=== PATIENT | female | born 1975 | race Caucasian/White ===

== ENCOUNTER 2017-12-23 14:59 | Observation (INO) | payer OTHER ==
[2017-12-23 15:22] LABS: #Basophils 0.1 thou/uL (0.0-0.2); #Eosinphils 0.1 thou/uL (0.0-0.7); #Monocytes 0.4 thou/uL (0.11-0.59); #Neutrophils 5.1 thou/uL (1.40-6.50); %Basophils 1.2 % (0.0-1.0); %Eosinophils 1.4 % (0.0-10.0); %Lymphocytes 34.3 % (21.0-51.0); %Monocytes 4.1 % (0.0-10.0); Hemoglobin 14.7 g/dL (12.0-16.0); Mean Corpuscular Hemoglobin 32.8 pg (27.0-31.0); Mean Corpuscular Volume 96.5 fL (78.0-98.0); Mean Platelet Volume 7.6 fL (7.4-10.4); Platelet Count 230 thou/uL (130-400); RBC Distribution Width 12.3 % (11.5-14.5); Red Blood Cell (RBC) Count 4.49 mill/uL (4.20-5.40); White Blood Cell (WBC) Count 8.6 thou/uL (4.8-10.8)
[2017-12-23 15:46] LABS: ALT (SGPT) 15 U/L (8-55); AST (SGOT) 17 U/L (5-34); Albumin 4.1 g/dL (3.5-5.0); Alkaline Phosphatase 79 U/L (40-150); Anion Gap 16 mmol/L (10-20); BUN (Urea Nitrogen) 9 mg/dL (7.0-18.7); Bilirubin, Total 0.2 mg/dL (0.2-1.2); CK (CPK) 79 U/L (29-168); Calc. Creatinine Clearance 0 mL/min (70-130); Carbon Dioxide 20 mmol/L (22-29); Chloride 106 mmol/L (98-107); Estimated GFR-MDRD 83; Globulin 3.2 g/dL (2.4-3.5); Glucose 86 mg/dL (70-105); Potassium 3.7 mmol/L (3.5-5.1); Protein, Total 7.3 g/dL (6.0-8.3); Sodium 138 mmol/L (136-145)
[2017-12-23 15:49] LABS: CKMB 1.6 ng/mL (0-6.6); Troponin I Less than 0.010 ng/mL (< 0.028)
--- NOTE | 2017-12-23 15:56 | RAD ---
PORTABLE CHEST RADIOGRAPH: Date: 12-23-17 History: Chest pain. Comparison: 12-20-11 FINDINGS: Cardiac silhouette and pulmonary vasculature are within normal limits for the portable technique of t he study. The lungs are clear. Right convex scoliosis thoracic spine is again present. There has been no interval change from the prior exam. IMPRESSION: No acute cardiopulmonary process. POS: [facility]
[2017-12-23] MEDS ORDERED: Aspirin 325 MG TAB ONE (16:32)
[2017-12-23] MEDS ORDERED: Acetaminophen 325 MG TAB PO PRN (18:56)
[2017-12-23] MEDS ORDERED: Ondansetron ODT 4 MG TAB SL PRN (18:56)
[2017-12-23] MEDS ORDERED: Ondansetron HCl/PF 4 MG/2 ML Vial IVP PRN (18:56)
[2017-12-23 20:20] VITALS: BMI 25.4
[2017-12-23 20:50] LABS: Troponin I Less than 0.010 ng/mL (< 0.028)
[2017-12-23] MEDS ORDERED: Nitroglycerin 0.4 MG TAB (25 Tab Bottle) PO PRN (23:16)
[2017-12-23 23:43] LABS: Troponin I Less than 0.010 ng/mL (< 0.028)
--- NOTE | 2017-12-24 06:00 | HP ---
CODE STATUS: FULL CODE. PRIMARY CARE DOCTOR: Dr. Valdez TIME OF EVALUATION: 2100 hours. CHIEF COMPLAINT: Chest pain. HISTORY OF PRESENT ILLNESS: This is a 42-year-old female patient with past medical history been long-term smoker, and having family history of coronary artery disease from the paternal side. The patient came to the hospital after having on and off chest pain 2-3/10 in intensity, it was on and off. Initially , she thought that was muscle related, but then the pain came back again. No clear triggers, no alleviating factors. No specific radiation. REVIEW OF SYSTEMS: Constitutional: No fever or chills, generalized weakness. Respiratory: No cough, no sputum production or shortness of breath. Cardiovascular: No chest pain, palpitations, shortness of breath. Gastrointestinal: No nausea, vomiting, diarrhea or abdominal pain. Central Nervous System: No dizziness, headache, feeling lightheaded. Genitourinary: No burning on urination. Extremities: No leg swelling. All other systems were reviewed and negative except for the findings mentioned above. PAST MEDICAL HISTORY: The patient had history of mitral valve prolapse, Raynaud disease, 20% hearing loss. PAST SURGICAL HISTORY: Tubal ligation, multiple ear surgeries. PSYCHIATRIC HISTORY: Anxiety, depression, OCD. SOCIAL HISTORY: The patient drinks on a daily basis. No drug use. Everyday smoker, 1.5 packs per day. FAMILY HISTORY: Father with coronary artery disease. Mother with diabetes. REPORTED MEDICATIONS: Vitamin D3 and Zoloft 50 mg daily. ALLERGIES: Known allergies to SULFA. PHYSICAL EXAMINATION: VITAL SIGNS: On presentation, blood pressure 110/78 with heart rate 110, respiratory rate was 18, temperature 98.2, oxygen saturation 97 on room air. GENERAL APPEARANCE: Alert and oriented, in no acute distress. HEENT: Eyes, normal conjunctivae. Moist oral mucosa. Anicteric. NECK: No JVD. RESPIRATORY: Bilateral air entry. No rales. Scattered wheezing. Symmetrical expansion. CARDIOVASCULAR: Normal rate, regular rhythm. No murmurs, no gallop, no edema. ABDOMEN: Soft, normal bowel sounds. MUSCULOSKELETAL: Baseline range of motion and strength. No tenderness. SKIN: Warm and intact. No pallor, no rash, no redness. NEUROLOGIC: Baseline sensory. No evidence of any new focal weakness. Baseline speech. Cranial nerve, sensory intact. PSYCHIATRIC: The patient is a good mood. No anxiety. Oriented, optimal judgment. LABORATORY DATA: Labs were reviewed. The patient has white count 9.6, hemoglobin 14.7, MCV 96.7, platelet count 130. Sodium 138, potassium 3.7, carbon dioxide was 20, anion gap 16, BUN 9, creatinine 0.76, GFR 83. LFTs are negative. Troponins were normal x2. Chest x-ray was reviewed. The patient has no acute cardiopulmonary process. EKG was reviewed. The patient has sinus tachycardia at the rate of 113, possible left atrial enlargement. No evidence of any acute ischemic event on the EKG. ASSESSMENT AND PLAN: The patient will be placed in the hospital for the following medical problems. 1. Chest pain, rule out acute coronary syndrome. Patient has on and off chest pain 2-3/10 intensity, patient has family history of cardiac problems. We will trend troponins, monitor on tele, stress test only in the morning. 2. Everyday smoker, advised to stop smoking.pt had tried and failed in the past , encouraged to keep trying 3. Deep venous thrombosis prophylaxis. 4. Past medical history of depression, is a chronic problem, seems to be stable at this point. AVANID
[2017-12-24 06:35] LABS: Troponin I 0.016 ng/mL (< 0.028)
[2017-12-24 07:32] VITALS: BP 110/75; TEMP 98.2
[2017-12-24] MEDS ORDERED: Aspirin 325 MG TAB PO SCH (09:00)
--- NOTE | 2017-12-24 12:13 | PDOC.PN ---
- Subjective Encounter Start Date: 12/24/17 Encounter Start Time: 09:15 Subjective: no current chest pain -: has cough+, no altered sputum or fever - Objective MAR Reviewed: Yes Vital Signs & Weight: Vital Signs (12 hours) Temp Pulse Resp BP BP Pulse Ox 12/24/17 08:00 98.2 F 82 16 12/24/17 07:32 98.2 F 82 16 110/75 95 12/24/17 07:29 98.2 F 82 16 110/75 95 12/24/17 04:43 83 18 133/75 98 Weight Weight 157 lb 12.8 oz Result Diagrams: 12/23/17 15:19 12/23/17 15:19 Phys Exam - Physical Examination HEENT: PERRLA, moist MMs Neck: no JVD, supple Respiratory: no wheezing, no rales rhonchi+ Cardiovascular: RRR, no significant murmur Gastrointestinal: soft, non-tender, positive bowel sounds Musculoskeletal: no edema, pulses present Neurological: non-focal, moves all 4 limbs Psychiatric: normal affect, A&O x 3 Dx/Plan (1) Chest pain Code(s): R07.9 - CHEST PAIN, UNSPECIFIED Status: Acute Qualifiers: Chest pain type: unspecified Qualified Code(s): R07.9 - Chest pain, unspecified (2) COPD (chronic obstructive pulmonary disease) Status: Acute Qualifiers: COPD type: COPD with acute exacerbation Qualified Code(s): J44.1 - Chronic obstructive pulmonary disease with (acute) exacerbation (3) Tobacco abuse Code(s): Z72.0 - TOBACCO USE Status: Chronic (4) Raynaud disease Code(s): I73.00 - RAYNAUD'S SYNDROME WITHOUT GANGRENE Status: Chronic Qualifiers: Raynaud?s-associated gangrene presence: without gangrene Qualified Code(s) : I73.00 - Raynaud's syndrome without gangrene - Plan exercise stress test is -ve, trop x4 -ve -: ekg/telemetry no change/signs to suggest ischemia -: nebs, steroids. To call either or myself in 3 daysif she develops -: -chest pain for possible scheduling of cath -: dc pt home * .
--- NOTE | 2017-12-24 14:22 | DIS ---
DATE OF ADMISSION: 12/24/2017 DATE OF DISCHARGE: 12/24/2017 DISCHARGE DISPOSITION: To home. PRIMARY DISCHARGE DIAGNOSES: Chest pain, which is noncardiac; mild chronic obstructive pulmonary dis ease exacerbation. SECONDARY DISCHARGE DIAGNOSES: Tobacco abuse. Raynaud's disease. PROCEDURES DONE DURING HOSPITALIZATION: Troponin x4 negative. CK-MB 1.6, BUN 9, creatinine 0.7. Ch est x-ray done showed no acute cardiopulmonary abnormalities. H&H 14 and 43, platelet count 230. Flynn s had exercise stress test done, which was negative for ischemia. DISCHARGE MEDICATIONS: Albuterol inhaler q.6 hourly p.r.n., aspirin 81 mg p.o. daily, DuoNebs q.i.d. , prednisone tapering dose starting at 10 mg 3 times daily, Zoloft 50 mg p.o. q.a.m. ALLERGIES: SULFA. DISCHARGE PLAN: The patient to follow up with primary care physician in 1 week. BRIEF COURSE DURING HOSPITALIZATION: The patient initially came in with complaints of retrosternal c hest pain, which was off and on. She was placed under observation on telemetry. ACS evidence based protocol was followed. Three sets of troponin were negative and an exercise stress test done was neg ative for ischemia. Her chest pain is resolving at present. Likely, the patient has mild chronic ob structive pulmonary disease exacerbation with history of tobacco abuse. She has been advised to cont inue DuoNebs along with prednisone taper. The patient's chest pain was to worsen or increase, she is advised to come to the nearest emergency room. She is otherwise hemodynamically stable and will be shortly discharged home. The patient has had a prior follow up with Dr. Penny 5 years ago and needs to follow up with him. Please see a [id number] documentation on [facility] for the day of discharge .
--- NOTE | 2017-12-27 15:49 | EKG ---
Test Reason : CP Blood Pressure : / mmHG Vent. Rate : 113 BPM Atrial Rate : 113 BPM P-R Int : 160 ms QRS Dur : 084 ms QT Int : 336 ms P-R-T Axes : 054 087 037 degrees QTc Int : 460 ms Sinus tachycardia Possible Left atrial enlargement Borderline ECG Confirmed by FRANCOISE COOL, GINNY ([id number]), scientific editor WOJCIECH NORRIS ([id number]) on 12/27/2017 3:48:47 PM Referred By: Confirmed By:GINNY OWUSU MD
--- NOTE | 2017-12-29 13:24 | STRESS ---
Acquisition Time: 2017-12-24 08:48:11 Total Exercise Time: 00:06:00 Test Indications: CHEST PAIN Medications: Protocol: DARCY Max HR: 153 BPM 86% of Pred: 177 BPM Max BP: 134/070 mmHG Max Work Load: 7.0 METS RESTING ECG: NORMAL SINUS RHYTHM AT 75 BPM WITH INCOMPLETE RIGHT BUNDLE BRANCH BLOCK SYMPTOMS: DYSPNEA ON EXERTION NORMAL BLOOD PRESSURE RESPONSE ECTOPY: NONE ECG STRESS: NO SIGNIFICANT CHANGES INTERPRETATION: NEGATIVE ECG/EXERCISE TREADMILL TEST Confirmed by KYRIE GUTIERREZ ([id number]), industrial editor GOSIA ANN ([id number]) on 12/29/2017 1:23:59 PM Referred By: Dallas SONG Confirmed By:KYRIE GUTIERREZ
== END 2017-12-24 10:49 | disposition home or self-care (01) ==
LOC: ERS 14:59 → 2SW 18:50
PROVIDERS: ADMIT Family Medicine; ATTEND Family Medicine
DX: R07.89 Other chest pain (principal); F17.210 Nicotine dependence, cigarettes, uncomplicated; I73.00 Raynaud's syndrome without gangrene; I34.1 Nonrheumatic mitral (valve) prolapse; F41.9 Anxiety disorder, unspecified; F32.9 Major depressive disorder, single episode, unspecified; F42.9 Obsessive-compulsive disorder, unspecified; J44.1 Chronic obstructive pulmonary disease with (acute) exacerbation; Z79.899 Other long term (current) drug therapy; Z88.2 Allergy status to sulfonamides
CPT/HCPCS: 36415; 71045; 80053; 82553; 84484; 85025; 93005; 93017; 94760; 99406; A4216; G0378

== ENCOUNTER 2020-09-10 17:23 | Emergency (ER) | payer OTHER, SELFPAY | END 2020-09-10 18:32 | disposition home or self-care (01) | LOC: ERS 17:23 | DX: S20.212A Contusion of left front wall of thorax, initial encounter (principal); F17.210 Nicotine dependence, cigarettes, uncomplicated; W18.2XXA Fall in (into) shower or empty bathtub, initial encounter ==

== ENCOUNTER 2022-06-11 14:22 | Emergency (ER) | payer BC, OTHER ==
[2022-06-11] MEDS ORDERED: Ibuprofen 800 MG TAB ONE (15:56)
== END 2022-06-11 17:05 | disposition home or self-care (01) ==
LOC: ERS 14:22
DX: S82.832A Other fracture of upper and lower end of left fibula, initial encounter for closed fracture (principal); F17.210 Nicotine dependence, cigarettes, uncomplicated; V00.131A Fall from skateboard, initial encounter; Y93.51 Activity, roller skating (inline) and skateboarding
CPT/HCPCS: 29505